=== PATIENT | female | born 1970 | race Caucasian/White ===

== ENCOUNTER 2023-02-17 10:00 | Emergency (ER) | payer SELFPAY ==
[~2023-02-17] VITALS: Ht 170.2 cm; Wt 105.5 kg
[2023-02-17 10:52] VITALS: BP 130/80
--- NOTE | 2023-02-17 11:22 | NUR ---
Dr. Albert at beside
[2023-02-17] MEDS ORDERED: acetaminophen 325mg tablet PO ONE (11:55)
== END 2023-02-17 12:37 | disposition home or self-care (01) ==
LOC: ER 10:01
DX: M25.512 Pain in left shoulder (principal); M79.602 Pain in left arm; F31.9 Bipolar disorder, unspecified; F12.90 Cannabis use, unspecified, uncomplicated; Z88.2 Allergy status to sulfonamides; Z88.8 Allergy status to other drugs, medicaments and biological substances; Z79.899 Other long term (current) drug therapy
CPT/HCPCS: 99283